=== PATIENT | female | born 1995 | race Caucasian/White ===

== ENCOUNTER 2018-02-24 17:58 | Emergency (ER) | payer OTHER ==
--- NOTE | 2018-02-24 18:45 | EDPHY ---
H & P Smoking Status: Never smoked Time Seen by Provider: 02/24/18 18:34 HPI/ROS: CHIEF COMPLAINT: Left-sided mid back pain and heaviness and left arm HISTORY OF PRESENT ILLNESS: 23-year-old female with a history of myocarditis 3 years ago here with chief complaint of left-sided mid back pain for approximately 5 days. She states that she has limited exercise since her diagnosis of myocarditis 3 years ago and last Saturday she went on a bike ride approximately an hour after the bike rate she developed mid back pain felt slight heaviness in her left arm. She denies any paresthesias, chest pain, shortness of breath, fever, cough, leg swelling. She takes no prescribed medications other than control. She has no history of DVT or PE. She has had no hemoptysis. REVIEW OF SYSTEMS: Constitutional: No fever, no chills. Eyes: No discharge. ENT: No sore throat. Cardiovascular: No chest pain, no palpitations. Respiratory: No cough, no shortness of breath. Gastrointestinal: No abdominal pain, no vomiting. Genitourinary: No hematuria. Musculoskeletal: + back pain. Skin: No rashes. Neurological: No headache. (Elías Blakely) Physical Exam: General Appearance: Alert and no distress. Eyes: Pupils equal and round no injection. Respiratory: Chest is nontender, lungs are clear to auscultation. Cardiac: regular rate and rhythm. Gastrointestinal: Abdomen is soft and nontender, no masses, bowel sounds normal. Musculoskeletal: Neck is supple and nontender. Mild tenderness to left midthoracic region. Extremities have full range of motion and are nontender. Skin: No rashes or lesions. (Elías Blakely) Constitutional: Initial Vital Signs Temperature (C) 36.7 C 02/24/18 18:05 Heart Rate 105 H 02/24/18 18:05 Respiratory Rate 18 02/24/18 18:05 Blood Pressure 132/82 H 02/24/18 18:05 O2 Sat (%) 99 02/24/18 18:05 O2 Delivery Mode Room Air Allergies/Adverse Reactions: No Known Allergies Allergy (Unverified 02/24/18 18:08) Home Medications: Medication Instructions Recorded Levonorgestrel-Ethin Estradiol 02/24/18 Medical Decision Making ED Course/Re-evaluation: Patient here with concern for recurrence of myocarditis. She has no evidence of myocarditis on exam including no shortness of breath, leg swelling, chest pain. Chest x-ray shows no enlargement of the cardiac silhouette no pleural effusion. She has no lower extremity edema. Labs show normal CRP and CBC and basic metabolic panel. Additionally EKG shows sinus rhythm without any ischemic changes and troponin is negative for any ischemia or cardiac injury. Patient was reassured and was referred back to her primary care physician at [facility]. (Elías Blakely) The patient was evaluated and managed by the physician ice cream freezer assistant. I have reviewed this chart and I agree with the findings and plan of care as documented , as indicated by my signature. I am the secondary supervising physician. ( Annabel Hood) Differential Diagnosis: Pulmonary embolism, muscle strain, radiculopathy, arrhythmia, myocarditis, pericarditis (Elías Blakely) - Data Points Laboratory Results: Laboratory Results 02/24/18 18:40 02/24/18 18:40 Point of Care Test Results: Chemistry 02/24/18 18:47 POC Troponin I 0.01 ng/mL ng/mL (0.00-0.08) Departure - Departure Disposition: Home, Routine, Self-Care Clinical Impression: Thoracic back pain Condition: Good Instructions: Muscle Strain (ED) Additional Instructions: This or severe pain is likely a muscle strain. He developed worsening pain, shortness of breath, pain with respiration or other worrisome symptoms please return to the ER for further evaluation. He have continued symptoms follow up with the primary care did physician in the next 5-7 days. Referrals: NONE *PRIMARY CARE P,. [Primary Care Provider] - As per Instructions [facility] [Clinic] - As per Instructions
[2018-02-24 19:07] LABS: PLATELET COUNT 422 10^3/uL (150-400)
[2018-02-24 20:05] VITALS: BP 121/60
--- NOTE | 2018-02-25 22:03 | CPEKG ---
Test Reason : OPEN Blood Pressure : / mmHG Vent. Rate : 084 BPM Atrial Rate : 084 BPM P-R Int : 110 ms QRS Dur : 076 ms QT Int : 345 ms P-R-T Axes : 065 054 030 degrees QTc Int : 408 ms Sinus rhythm Confirmed by Ladi Majano ([id number]) on 02/25/2018 10:02:49 PM Referred By: Confirmed By:Ladi Majano
== END 2018-02-24 20:05 | disposition home or self-care (01) ==
DX: M54.6 Pain in thoracic spine (principal); Z86.79 Personal history of other diseases of the circulatory system
CPT/HCPCS: 84484-PO

== ENCOUNTER → 2018-06-12 | Outpatient (CLI) | payer OTHER | LOC: BMCIMAGING 09:06 | PROVIDERS: ATTEND Family Medicine | DX: M79.604 Pain in right leg (principal) ==

== ENCOUNTER → 2018-07-11 | Outpatient (CLI) | payer OTHER | LOC: BMCIMAGING 16:48 | PROVIDERS: ATTEND Internal Medicine | DX: M79.89 Other specified soft tissue disorders (principal) ==